=== PATIENT | male | born 1940 | race American Indian/Alaskan Native ===

== ENCOUNTER 2017-03-19 08:03 | Day surgery (SDC) | payer MEDICARE ==
[2017-03-19 09:54] LABS: Basophils % (Auto) 0.9 % (0.0-1.8); Eosinophils % (Auto) 1.9 % (0.0-4.3); Hematocrit 38.7 % (35.5-45.6); Mean Corpuscular HGB Conc 31 % (32-34); Mean Corpuscular Volume 74 fl (84-94); Platelet Count 153 K/mm3 (140-440); Red Blood Count 5.21 M/mm3 (3.65-5.03); Red Cell Distribution Width 16.6 % (13.2-15.2); White Blood Count 7.7 K/mm3 (4.5-11.0)
[2017-03-19] MEDS ORDERED: NACL 0.9% 500 ML 500 ML IV SCH (10:00)
[2017-03-19 10:01] LABS: Mean Corpuscular Hemoglobin 23 pg (28-32)
[2017-03-19 10:06] LABS: Anion Gap 16 mmol/L; BUN/Creatinine Ratio 15.45; Blood Urea Nitrogen 17 mg/dL (9-20); Calcium 8.7 mg/dL (8.4-10.2); Carbon Dioxide 25 mmol/L (22-30); Chloride 104.8 mmol/L (98-107); Glucose 99 mg/dL (75-100); Potassium 4.9 mmol/L (3.6-5.0); Sodium 141 mmol/L (137-145)
[2017-03-19 10:16] LABS: INR 1.02 (0.87-1.13)
[2017-03-19] MEDS ORDERED: ECOTRIN PO ONE (10:30)
[2017-03-19] MEDS ORDERED: HEPARIN/NS 5000 UNIT/500ML(CATH LAB) 1,000 ML IR ONE (10:52)
[2017-03-19] MEDS ORDERED: VERSED ONE (10:52)
[2017-03-19] MEDS ORDERED: SUBLIMAZE ONE (10:52)
[2017-03-19] MEDS ORDERED: HEPARIN 10,000 UNITS/10 ML ONE (10:52)
[2017-03-19] MEDS ORDERED: XYLOCAINE 2% INFILTRATI ONE (10:52)
[2017-03-19] MEDS ORDERED: CALAN ONE (10:52)
[2017-03-19] MEDS ORDERED: NITROGLYCERIN SYRINGE 3 ML ONE (10:53)
[2017-03-19] MEDS: APRESOLINE ONE ×2 (11:13→11:17)
[2017-03-19] MEDS ORDERED: ALUM-MAG HYDROX-SIMETH 200-200-20MG/5ML PO ONE (11:40)
[2017-03-19] MEDS ORDERED: ALUM-MAG HYDROX-SIMETH 200-200-20MG/5ML ONE (11:54)
--- NOTE | 2017-03-19 12:22 | Short Stay Summary ---
Short Stay Documentation Date of service: 03/19/17 - History H&P: obtained from office - Allergies and Medications Current Medications: Allergies Penicillins Allergy (Severe, Verified 03/19/17 09:31) Rash Home Medications Medication Instructions Recorded Confirmed Last Taken Type Aspirin EC 81 mg PO QDAY 03/19/17 03/19/17 03/18/17 History AtorvaSTATin [Lipitor] 40 mg PO QHS 03/19/17 03/19/17 03/17/17 History Clopidogrel Bisulfate [Plavix] 75 mg PO QDAY 03/19/17 03/19/17 03/18/17 History Clotrimazole 1% 1 dose TRANSDERMA PRN PRN 03/19/17 03/19/17 4 Days Ago History Fluticasone [Flonase] 1 spray NS PRN PRN 03/19/17 03/19/17 1 Month Ago History ISOSORBIDE MONOnitrate 120 mg PO QDAY 03/19/17 03/19/17 03/18/17 History Naproxen Sodium [Aleve TAB] 220 mg PO PRN PRN 03/19/17 03/19/17 1 Week Ago History amLODIPine [Norvasc] 5 mg PO DAILY 03/19/17 03/19/17 03/18/17 History Active Medications Sodium Chloride (Nacl 0.9% 500 Ml) 500 mls @ 50 mls/hr IV DIRECT GLORY Last Admin: 03/19/17 10:19 Dose: 50 mls/hr - Brief post op/procedure progress note Date of procedure: 03/19/17 Pre-op diagnosis: chest pain Post-op diagnosis: same Procedure: C - see cath report Anesthesia: local Estimated blood loss: none Pathology: none Condition: stable - Disposition Condition at discharge: Stable - Discharge Diagnoses (1) Chest pain Status: Chronic Qualifiers: Chest pain type: C Ischemic chest pain type: I (2) Abnormal stress test Status: Chronic (3) HTN (hypertension) Status: Chronic Qualifiers: Hypertension type: H (4) Hyperlipidemia Status: Chronic Qualifiers: Hyperlipidemia type: H (5) History of CVA (cerebrovascular accident) Status: Chronic Short Stay Discharge Plan Activity: advance as tolerated Diet: low fat, low cholesterol, low salt Wound: open to air, keep clean and dry Follow up with: NURIA LIZAMA DO [Primary Care Provider] - 7 Days OLATIDOYE,ERICA G, MD [Staff Physician] - 7 Days ([facility] office on 2016 @ 1:00PM)
--- NOTE | 2017-03-19 12:42 | Cardiac Catherization Report ---
LEFT HEART CATHETERIZATION ORDERING PHYSICIAN: Cm Freeman M.D. CLINICAL INFORMATION: This is a 76-year-old Malay male with history of hypertension, hyperlipidemia and known coronary artery disease with nonobstructive coronary artery disease, presents with anginal symptoms, has a stress test that showed small apical ischemia and is on long-acting nitrates and he will take beta geneva secondary to bradycardia, is here for left heart catheterization. Left heart catheterization performed via the right radial artery, sterile technique, local anesthesia, 6-[place] radial sheath inserted. Left system engaged with a JL3.5 catheter. FINDINGS: Left main is large and patent, bifurcates into large LAD, proximal is patent with mild luminal irregularities. Mid has a focal 40% lesion. Rest LAD is patent with mild luminal irregularities. Diagonal 1 is a small caliber vessel, is patent with mild to moderate luminal irregularities. Circumflex and AV groove, proximal is large caliber vessel patent, goes into a medium caliber OM1 is patent in upper and lower branch, a small caliber vessel, diffusely diseased. OM2 is a small caliber vessel that is patent. RCA engaged with JR4 catheter, is a large dominant vessel, patent with mild luminal irregularities from proximally and distally, bifurcates into small PDA and PLV that are patent. You can see collateralization into what appears to be diagonals, ____ small, but no obstructive disease seen on the left coronary system. LV gram done in [place] and [place] view shows normal LV function, LVEDP of 30 mmHg, LV is 225/12. Aortic is 225/82. No gradient across the aortic valve on pullback, 5-Latvian catheters were taken over a guidewire, 6-[place] radial sheath was discontinued. Radial dressing applied. No hematoma. No bleeding. SUMMARY: 1. Nonobstructive coronary artery disease, left main patent. LAD mid focal 40%, small vessel disease in the distal OMs and PDA, PLV with right to left collateralization to a small diagonal that is diffusely diseased. 2. Normal LV function. RCA patent, circ patent. 3. Treat the patient medically. Add Norvasc for better BP control and patient will follow up with primary bit tripoler in 1-2 weeks. [facility]# [id number] VRM/NTS
[2017-03-19 15:23] VITALS: BP 154/70
== END 2017-03-19 14:15 | disposition home or self-care (01) ==
LOC: OPU 08:03
PROVIDERS: ATTEND Internal Medicine
DX: I25.10 Atherosclerotic heart disease of native coronary artery without angina pectoris (principal); I10 Essential (primary) hypertension; E78.5 Hyperlipidemia, unspecified; E66.9 Obesity, unspecified; Z68.31 Body mass index [BMI] 31.0-31.9, adult; Z88.0 Allergy status to penicillin; Z79.899 Other long term (current) drug therapy; Z86.73 Personal history of transient ischemic attack (TIA), and cerebral infarction without residual deficits; Z87.891 Personal history of nicotine dependence; Z72.89 Other problems related to lifestyle; Z82.49 Family history of ischemic heart disease and other diseases of the circulatory system; Z83.49 Family history of other endocrine, nutritional and metabolic diseases; Z80.0 Family history of malignant neoplasm of digestive organs
CPT/HCPCS: 36415; 80048; 85025; 85610; 85730; 93005; 93010; 93458; C1894; J0360; J1644; J2250; J3010; J7040; Q9967